=== PATIENT | male | born 1975 | race Caucasian/White ===

== ENCOUNTER 2021-11-30 17:00 | Outpatient (CLI) | payer BC | END 2021-11-30 17:01 | disposition home or self-care (01) | LOC: SLEEPLAB 17:00 | PROVIDERS: ATTEND Internal Medicine | DX: G47.33 Obstructive sleep apnea (adult) (pediatric) (principal); E66.9 Obesity, unspecified; G47.31 Primary central sleep apnea | CPT/HCPCS: 95806 ==

== ENCOUNTER 2022-03-19 19:00 | Outpatient (CLI) | payer BC | END 2022-03-19 19:01 | disposition home or self-care (01) | LOC: SLEEPLAB 19:00 | PROVIDERS: ATTEND Internal Medicine | DX: G47.33 Obstructive sleep apnea (adult) (pediatric) (principal); R06.83 Snoring; G47.10 Hypersomnia, unspecified; G47.31 Primary central sleep apnea; E66.9 Obesity, unspecified; Z68.44 Body mass index [BMI] 60.0-69.9, adult | CPT/HCPCS: 95811 ==

== ENCOUNTER 2023-06-06 19:30 | Outpatient (CLI) | payer OTHER | END 2023-06-06 19:31 | disposition home or self-care (01) | LOC: SLEEPLAB 19:30 | PROVIDERS: ATTEND Internal Medicine | DX: G47.30 Sleep apnea, unspecified (principal); E78.5 Hyperlipidemia, unspecified; M54.2 Cervicalgia; G47.31 Primary central sleep apnea | CPT/HCPCS: 95811 ==